=== PATIENT | female | born 1995 | race Caucasian/White ===

== ENCOUNTER → 2018-02-22 12:06 | Outpatient (CLI) | payer OTHER, SELFPAY ==
--- NOTE | 2018-02-22 12:13 | US_ITS ---
STUDY: ULTRASOUND BREAST - RIGHT REASON FOR EXAM: Female, 22 years old. Palpable lump in the right breast. TECHNIQUE: Axial and longitudinal images of the RIGHT breast were performed with a high resolution ultrasound transducer. COMPARISON: None. FINDINGS: RIGHT Breast: The palpable abnormality corresponds to a 2.5 cm x 2.7 cm x 1.1 cm hypoechoic solid nodule with lobulated sharp borders. This most likely represents a fibroadenoma although a tissue diagnosis is recommended. US/Breast Limited Unilateral IMPRESSION: The palpable abnormality corresponds to a 2.5 cm x 2.7 cm x 1.1 cm solid lobulated hypoechoic mass at the 3:00 position of the breast at 2 cm from nipple. A biopsy is recommended for further evaluation. ASSESSMENT CATEGORY: BIRADS Category 4: Suspicious - Biopsy Should Be Considered. A letter regarding these results will be sent to the patient by the facility within 30 days. Electronically Signed: Buck Sapp MD at 12:43 EDT Tel [phone], Service support ,
== END ==
PROVIDERS: Visit Provider Obstetrics & Gynecology
DX: N63.14 Unspecified lump in the right breast, lower inner quadrant (principal)
CPT/HCPCS: 76642

== ENCOUNTER → 2018-03-03 15:11 | Outpatient (CLI) | payer OTHER, SELFPAY ==
--- NOTE | 2018-03-03 13:20 | BRBX_PTH ---
PATIENT: EUNICE HE LOC: [facility] U#:[id number] AGE/SX: 30/F ROOM: RE03/03/[address]: Dr. Luz Brito MD : 1995 BED: DIS: SPEC #: [id number] RECD: 03/03/18 15:12 STATUS: MAGNOLIA MADELAINE #: [id number] ALVINA: 03/03/18 13:[address]: Luz Brito DEPT: SURGICAL PATHOLOGY RECD BY: Armando Leal ENTERED: 03/04/18 04:54 SP TYPE: BREAST BX OT DR: No Primary Care Phys Tissues: Right breast, NOS Procedures: Surgery Specimen Level IV HEADER OPERATION: Ultrasound-guided needle core biopsy right breast PRE-OP DIAGNOSIS: Right breast mass TISSUE SUBMITTED: Right breast mass 3 o?clock, 2 cm FTN ISCHEMIC TIME: <1 minute FIXATION TIME: 5.5 hours MICROSCOPIC DIAGNOSIS Right breast mass, ultrasound-guided needle core biopsy: Focal dense stromal tissue suggestive of fibroadenoma. AM:diego 03/04/18 MICROSCOPIC DESCRIPTION Slides are reviewed. GROSS DESCRIPTION Received in fixative is one container labeled with the patient's name and designated right breast biopsy. The specimen consists of multiple elongated fragments of montgomery-yellow fibroadipose tissue that in aggregate measure 1 x 0.2 x 0.1 cm. The entire specimen is submitted in one cassette. / SJ:diego 03/03/18 TC:5 CPT: 68836
== END ==
PROVIDERS: Visit Provider Surgery
DX: N63.0 Unspecified lump in unspecified breast (principal)
CPT/HCPCS: 88305